=== PATIENT | male | born 1990 | race African-American/Black ===

== ENCOUNTER 2024-11-06 22:33 | Emergency (ER) | payer OTHER ==
[~2024-11-06] VITALS: Ht 198.1 cm; Wt 100.0 kg
[2024-11-06 22:36] VITALS: TEMP 36.6; O2SAT 99
[2024-11-07] MEDS ORDERED: IBUP-1455 MT (00:38)
[2024-11-07 00:59] VITALS: BP 116/78; PULSE 72; RESP 14; O2SAT 97
== END 2024-11-07 01:00 | disposition home or self-care (01) ==
LOC: ER 22:33
DX: S10.93XA Contusion of unspecified part of neck, initial encounter (principal); S80.12XA Contusion of left lower leg, initial encounter; J45.909 Unspecified asthma, uncomplicated; V43.52XA Car driver injured in collision with other type car in traffic accident, initial encounter; Y93.89 Activity, other specified; Y92.410 Unspecified street and highway as the place of occurrence of the external cause; Y99.8 Other external cause status
CPT/HCPCS: 99283